=== PATIENT | male | born 1965 | race Caucasian/White ===

== ENCOUNTER 2020-04-15 18:34 | Emergency (ER) | payer OTHER, SELFPAY ==
[2020-04-15 18:59] VITALS: BP 161/84; PULSE 104; RESP 20; TEMP 37.9; O2SAT 97
[2020-04-15 20:30] VITALS: BP 150/78; PULSE 101; RESP 15; O2SAT 98
--- NOTE | 2020-04-15 20:42 | ED.EXTPRO ---
HPI - Extremity Problem General Chief complaint: Extremity Problem,Nontraumatic Stated complaint: redness and swelling rt lower leg Time Seen by Provider: 04/15/20 20:33 History of Present Illness HPI Narrative: 54 yo male w/ h/o htn presents with leg swelling. He reports chronic edema of the lower legs bilaterally. The right leg has been a bit worse recently then throughout the course of the day yesterday it became red and and painful. No fever, chills, trauma, wound. He has never had this before. Related Data Allergies Allergy/AdvReac Type Severity Reaction Status Date / Time celecoxib Allergy Unknown Angioedema Verified 04/15/20 21:15 hydrochlorothiazide Allergy Unknown angioedema Verified 04/15/20 21:15 lisinopril Allergy Unknown angioedema Verified 04/15/20 21:15 No Known Allergies Allergy Verified 04/15/20 21:15 Review of Systems Review of Systems: All systems reviewed & are unremarkable except as noted in HPI and below Constitutional: Constitutional: Denies fever(s) Cardiovascular: Cardiovascular: Denies chest pain Respiratory: Respiratory: Denies dyspnea Gastrointestinal: Gastrointestinal: Denies vomiting Neurologic: Denies dizziness and Denies weakness [facility] Past Medical History Medical History (Updated 04/16/20 @ 01:40 by Tc Bowens MD) HTN (hypertension) Social History Social History Smoking status: Never smoker Alcohol intake: never Exam Const: General: no acute distress and alert Nutritional Appearance: obese Orientation/consciousness: patient oriented x3 HENMT: Head: normal to inspection Resp: Effort & Inspection: normal respiratory effort Auscultation: clear to auscultation bilaterally Cardio: Rate: regular rate Rhythm: regular rhythm GI: GI Palp: Yes Soft to palpation and No Tenderness to palpation present (GI) Skin: Other: erythema and induration of right lower leg Neuro: General: patient oriented x3, moves all extremities and no focal motor deficits Speech: normal speech Extrem: Other: See skin exam Course Vital Signs Vital signs: Vital Signs Temperature 37.9 C H 04/15/20 18:59 Pulse Rate 104 H 04/15/20 18:59 Respiratory Rate 20 04/15/20 18:59 Blood Pressure 161/84 H 04/15/20 18:59 Pulse Oximetry 97 04/15/20 18:59 Temperature 37.9 C H 04/15/20 18:59 Pulse Rate 78 04/15/20 21:10 Respiratory Rate 14 04/15/20 21:10 Blood Pressure 155/86 H 04/15/20 21:10 Pulse Oximetry 97 04/15/20 21:10 MDM - Extremity (Nontraumatic) MDM Narrative Medical decision making narrative: He has cellulitis of the right lower leg. He appears well without systemic symptoms. Glucose mildly elevated, but within expected range. He is a good candidate for a trial of outpatient treatment. Lab Data Attestation: I reviewed the patient's lab results. Labs: Lab Results 04/15/20 Range/Units 20:58 POC Capillary Glucose 126 H (65-105) mg/dl Discharge Plan Discharge Clinical Impression: Cellulitis Patient Disposition: Home, Self-Care Condition: Stable Instructions: Antibiotic Form, Cellulitis (ED) Prescriptions: New cephalexin [Keflex] 500 mg capsule 500 mg PO Q8H Qty: 30 RF: 0 No Action chlorthalidone 25 mg tablet 25 mg PO DAILY Qty: 90 RF: 0 amlodipine 10 mg tablet 10 mg PO DAILY Qty: 90 RF: 0 Follow-up/Referrals: Hazel Lund MD [Primary Care Provider] - Discharge Date/Time: 04/15/20 21:10
[2020-04-15 21:03] LABS: Glucose Point of Care 126 (65-105)
[2020-04-15] MEDS: CEPHALEXIN 500 MG CAPSULE PO (21:04)
[2020-04-15 21:10] VITALS: BP 155/86; PULSE 78; RESP 14; O2SAT 97
== END 2020-04-15 21:10 | disposition home or self-care (01) ==
PROVIDERS: Emergency Provider Emergency Medicine; PCP Family Medicine
DX: L03.115 Cellulitis of right lower limb (principal); R60.0 Localized edema; I10 Essential (primary) hypertension
CPT/HCPCS: 82948; 99283; A9270

== ENCOUNTER 2022-02-02 11:04 | Emergency (ER) | payer OTHER, MEDICAID, SELFPAY ==
--- NOTE | 2022-02-02 11:10 | ED.NAVMDI ---
HPI - Nausea/Vomiting/Diarrhea General Chief complaint: Nausea/Vomiting/Diarrhea Stated complaint: VOMITING/DIARRHEA Time Seen by Provider: 02/02/22 11:25 Source: patient and RN notes reviewed Mode of arrival: ambulatory Limitations: no limitations History of Present Illness HPI Narrative: 56-year-old male presents with concern for returning to work after having diarrhea. He reports symptoms started on Saturday with feeling flushed, clammy, had nausea, vomiting and diarrhea. Reports he had vomiting for about 2 days which resolved. He reports diarrhea resolved over the week. He reports no diarrhea if he eats bland foods, reports he has some diarrhea if he eats food such as [employer]. He denies any current abdominal pain, fever, body aches, chills, sweats. Reports he needs to return to work Saturday, and cannot return without a work note. MD elicited complaint: diarrhea Related Data Allergies Allergy/AdvReac Type Severity Reaction Status Date / Time celecoxib Allergy Unknown Angioedema Verified 05/16/20 13:15 hydrochlorothiazide Allergy Unknown angioedema Verified 05/16/20 13:15 lisinopril Allergy Unknown angioedema Verified 05/16/20 13:15 No Known Allergies Allergy Verified 05/16/20 13:15 Review of Systems Review of Systems: CONSTITUTIONAL: Denies malaise, chills, sweats, or fever. ENT: Denies rhinorrhea, congestion, sinus pain, otalgia or sore throat. CARDIOVASCULAR: Denies chest pain, palpitations, or edema. RESPIRATORY: Denies cough or dyspnea. GASTROINTESTINAL: Denies abdominal pain, nausea, vomiting, bloody, or mucous stools. Reports occasional diarrhea GENITOURINARY: Denies dysuria or hematuria. MUSCULOSKELETAL: Denies myalgia. NEUROLOGIC: Denies headache. All systems reviewed & are unremarkable except as noted in HPI and below PMFSH Past Medical History Medical History (Updated 02/02/22 @ 11:36 by Heidi John NP) Angioedema Benign essential HTN Chronic cellulitis Hives HTN (hypertension) Morbid obesity Social History Social History (Updated 05/16/20 @ 13:16 by Anisa Gomez) Smoking status: Never smoker Second hand tobacco smoke exposure: No Alcohol intake: never Substance use: never Substance use type: does not use Gender identity (if verbalized by the patient): Male Comments At time of signature, agree with nursing past medical, surgical, social and family history. There is no relevant family history pertinent to the presenting complaint Exam Narrative: GENERAL: Well-appearing, well-nourished, and in no acute distress. HEAD: Normocephalic, atraumatic. EYES: PERRLA, conjunctivae clear, and EOMI. ENT: Nares clear, turbinates pink, no rhinorrhea or epistaxis. Mucous membranes moist. Oropharynx without edema, erythema, or lesions. Tonsils not enlarged and without exudate. NECK: Supple. No lymphadenopathy CHEST: Speaks in full sentences. No respiratory distress. HEART: Regular rate and rhythm. ABDOMEN: Soft, obese, nondistended. No guarding, rebound tenderness, or rigid. No pulsatilla masses. Bowel sounds present in all four quadrants. No organomegaly. Negative Mcknight?s sign. No periumbilical tenderness. SKIN: Warm, dry, no rash. NEURO: Alert and oriented x3. PSYCH: Normal mood and affect Course Course Emergency Course: Patient is aware of diagnosis, understands and agrees to treatment plan. Anticipatory guidance given. Patient agrees to follow-up as directed and is aware of reasons to seek care at the emergency department. Portions of this record may have been created with voice recognition software Level of Care: Express Care Visit Vital Signs Vital signs: Reviewed. MDM - Nausea/Vomiting/Diarrhea MDM Narrative Medical decision making narrative: No evidence of pancreatitis, AAA, cholecystitis, choledocholithiasis, cholangitis, mesenteric ischemia, small bowel obstruction, diverticulitis, colitis, appendicitis, or pelvic etiology such as testicular torsion. Patient has no histo
[2022-02-02 11:15] VITALS: BP 115/76; PULSE 78; RESP 16; TEMP 36.8; O2SAT 100
== END 2022-02-02 11:39 | disposition home or self-care (01) ==
PROVIDERS: Emergency Provider Nurse Practitioner
DX: R19.7 Diarrhea, unspecified (principal); I10 Essential (primary) hypertension; E66.01 Morbid (severe) obesity due to excess calories; Z68.36 Body mass index [BMI] 36.0-36.9, adult
CPT/HCPCS: 99213; G0463

== ENCOUNTER → 2023-01-16 18:48 | Outpatient (CLI) | payer OTHER, MEDICAID, SELFPAY ==
--- NOTE | ~2023-01-16 | XR_ITS ---
EXAM: XR knee RT 3V, XR knee LT 3V DATE: 01/16/2023 19:20 HISTORY: bilateral knee pain . COMPARISON: None available. FINDINGS: Normal mineralization. No fracture or dislocation. No lytic or blastic lesion. Moderate bi lateral medial joint space narrowing. Tricompartmental osteophytosis, moderate in the patellofemoral compartments. Bilateral quadriceps enthesopathy. No erosion or periosteal change. Soft tissues within normal limits. Small volume joint fluid. IMPRESSION: Moderate tricompartmental bilateral knee osteoarthritis. Bilateral quadriceps enthesopath y. Small bilateral knee joint effusions. Reviewed, dictated and finalized at location K. IMPRESSION: Moderate tricompartmental bilateral knee osteoarthritis. Bilateral quadriceps enthesopathy. Small bilateral knee joint effusions.
== END ==
PROVIDERS: PCP Nurse Practitioner Family; Visit Provider Nurse Practitioner Family
DX: M17.0 Bilateral primary osteoarthritis of knee (principal); M25.462 Effusion, left knee; M25.461 Effusion, right knee; M76.892 Other specified enthesopathies of left lower limb, excluding foot; M76.891 Other specified enthesopathies of right lower limb, excluding foot
CPT/HCPCS: 73562